=== PATIENT | male | born 1945 | race Caucasian/White ===

== ENCOUNTER → 2023-04-23 15:46 | Outpatient (REF) | payer MEDICARE, OTHER, SELFPAY | LOC: HWRAD 15:46 | PROVIDERS: ATTENDING PHYSICIAN Family Medicine | DX: R10.9 Unspecified abdominal pain (principal) | CPT/HCPCS: 74176 ==

== ENCOUNTER → 2023-08-24 20:15 | Outpatient (REF) | payer MEDICARE, OTHER, SELFPAY | LOC: MRI 3T 20:15 | PROVIDERS: ATTENDING PHYSICIAN Internal Medicine Endocrinology, Diabetes & Metabolism; FAMILY PHYSICIAN Family Medicine | DX: D35.2 Benign neoplasm of pituitary gland (principal) | CPT/HCPCS: 70553; A9575 ==

== ENCOUNTER → 2024-08-22 15:49 | Outpatient (REF) | payer MEDICARE, OTHER, SELFPAY | LOC: MRI 3T 15:49 | PROVIDERS: ATTENDING PHYSICIAN Internal Medicine Endocrinology, Diabetes & Metabolism; FAMILY PHYSICIAN Family Medicine | DX: D35.2 Benign neoplasm of pituitary gland (principal) | CPT/HCPCS: 70553; A9575 ==

== ENCOUNTER → 2024-11-15 14:45 | Outpatient (REF) | payer MEDICARE, OTHER, SELFPAY | LOC: HWRAD 14:45 | PROVIDERS: ATTENDING PHYSICIAN Family Medicine | DX: M17.0 Bilateral primary osteoarthritis of knee (principal) | CPT/HCPCS: 73564 ==

== ENCOUNTER → 2025-01-04 06:31 | Outpatient (REF) | payer MEDICARE, OTHER, SELFPAY | LOC: HWRAD 06:31 | PROVIDERS: ATTENDING PHYSICIAN Family Medicine | DX: Z13.820 Encounter for screening for osteoporosis (principal); M81.0 Age-related osteoporosis without current pathological fracture | CPT/HCPCS: 77080 ==

== ENCOUNTER 2025-02-05 17:16 | Emergency (ER) | payer MEDICARE, OTHER, SELFPAY ==
[2025-02-05 17:17] VITALS: BP 179/97; BMI 32.0
[2025-02-05 17:45] LABS: Hematocrit 38.8 % (39.0-52.0); Hemoglobin 13.8 g/dL (13.0-18.0); Mean Corp Hgb Conc. 35.6 g/dL (33.0-37.0); Mean Corpuscular Volume 93.7 fL (80.0-94.0); Nucleated Red Blood Cells % 0 % (-); Platelet Count 143 10^3/uL (130-400); Red Cell Dist. Width 11.9 % (11.5-14.5)
[2025-02-05 18:01] LABS: COVID-19 Antigen Negative (Negative)
[2025-02-05 18:14] LABS: ALT (SGPT) 39 U/L (0-50); AST (SGOT) 30 U/L (17-59); Albumin 4.3 g/dl (3.5-5.0); Alkaline Phosphatase 121 U/L (38-126); Blood Urea Nitrogen 20 mg/dl (9-20); Calcium 9.0 mg/dl (8.4-10.2); Carbon Dioxide 22 mmol/L (22-30); Chloride 107 mmol/L (98-107); Glucose 135 mg/dl (70-99); Potassium 4.0 mmol/L (3.5-5.1); Sodium 138 mmol/L (135-145); Total Protein 7.1 g/dl (6.3-8.2); eGFR 47.36
[2025-02-05 18:29] VITALS: BP 163/76
[2025-02-05 19:00] VITALS: BP 159/77
[2025-02-05 20:00] VITALS: BP 133/75
[2025-02-05] MEDS: DUONEB 3 ML INH (20:04)
[2025-02-05 21:00] VITALS: BP 132/75
--- NOTE | 2025-02-05 23:18 | ED.GENMED ---
History of Present Illness
General
Chief Complaint: Cough
Source: patient and spouse
Exam Limitations: none
Time Seen by Provider: 02/05/25 19:32
Nursing documentation reviewed up to this point in time: agreed with
History of Present Illness
History of Present Illness:
Note:
CHIEF COMPLAINT(S)
- Persistent cough and congestion
HISTORY OF PRESENT ILLNESS
The patient is a 79-year-old male who began experiencing nasal congestion and a persistent clear runny nose shortly after returning from [facility]. The symptoms developed without an accompanying fever. On Thursday, he noted the onset of a
cough, which progressively worsened through and Thursday. By Thursday night, the coughing was severe enough to disrupt his sleep. The patient contacted his primary care physician on Thursday, who prescribed cough medicine. The patient suspected
pneumonia but was reassured over the phone by his physician that it was most likely bronchitis. Earlier today, he experienced a coughing fit that led to a sensation of fluid blocking his airway. This episode prompted his presentation to the
emergency department, especially as the symptoms did not resolve with position changes or brief walking. He had undergone a chest X-ray which showed no signs of pneumonia, and his COVID-19 and influenza tests were negative.
PAST MEDICAL AND SURIGICAL HISTORY
According to the patient, he was informed by his doctor about diminished kidney function in the past.
EXTERNAL RECORDS REVIEWED
Previous records from 2011 indicated a creatinine level that was slightly elevated at 1.5, likely related to known renal insufficiency.
CHRONIC MEDICAL CONDITIONS SIGNIFICANTLY AFFECTING CARE
- Chronic kidney disease
SOCIAL DETERMINANTS AFFECTING HEALTH
The patient reported having received COVID-19, influenza, and pneumonia vaccinations recently, which indicates good adherence to recommended healthcare practices.
IMMUNIZATION HISTORY
- COVID-19 vaccination
- Influenza vaccination
- Pneumonia vaccination
MEDICATIONS
- SudaFed
- Cough medicine prescribed by primary care physician
REVIEW OF SYSTEMS
- Respiratory: Persistent cough, sensation of fluid in lungs, wheezing noted during examination.
- Musculoskeletal: General achiness, particularly in the knees.
PHYSICAL EXAM
General: Alert, no acute distress.
Skin: Warm, dry.
Head: Normocephalic, atraumatic.
Neck: Supple, trachea midline.
Eye Ears, nose, mouth and throat: Oral mucosa moist.
Cardiovascular: Normal peripheral perfusion, No edema.
Respiratory: Respirations are non-labored, but wheezing noted.
Gastrointestinal: Abdomen nondistended
Back: Normal range of motion, Normal alignment.
Musculoskeletal: Normal ROM, normal strength.
Neurological: Alert and oriented to person, place, time, and situation, No focal neurological deficit observed.
Psychiatric: Cooperative, appropriate mood & affect.
PLAN
- Administer a nebulizer breathing treatment to alleviate respiratory symptoms.
- Prescribe an inhaler if the breathing treatment is effective.
- Advise discontinuation of ibuprofen due to its potential negative effects on renal function; recommend acetaminophen for discomfort instead.
- Continue monitoring symptoms and consult primary care physician if symptoms persist beyond expected duration.
DIFFERENTIAL DIAGNOSIS
The Differential Diagnosis includes, in no particular order and is not limited to:
1. Acute Bronchitis
2. Chronic Obstructive Pulmonary Disease exacerbation
3. Viral Upper Respiratory Infection
4. Heart Failure Exacerbation
5. Gastroesophageal Reflux Disease
6. Asthma
7. Pulmonary Edema
8. Pulmonary Embolism
9. Interstitial Lung Disease
10. Medication-induced cough
Disposition:
SUMMARY OF ENCOUNTER
The patient, a 79-year-old male, presented to the emergency department with persistent cough and congestion, suspecting pneumonia. After a clinical assessment and reviewing the chest X-ray, the symptoms were consistent with bronchitis, and pneumonia
was ruled out. The patient experienced a significant coughing episode with the sensation of airway blockage earlier, prompting concern. COVID-19 and influenza tests were negative. The management in the emergency department included a nebulizer
treatment with albuterol to alleviate respiratory symptoms. The patient was reassured about the diagnosis of bronchitis, considering his oxygen saturation was stable.
DISPOSITION
Discharge
ASSESSMENT
The patient presents with symptoms indicative of bronchitis rather than pneumonia, confirmed by the absence of pneumonia on the chest X-ray and the negative viral panels.
EMERGENCY TREATMENTS ADMINISTERED
Albuterol nebulizer breathing treatment was administered to alleviate respiratory symptoms.
PLAN
- Prescribe an inhaler if the nebulizer treatment proves effective.
- Discontinue ibuprofen due to potential renal side effects; use acetaminophen for discomfort instead.
- Monitor symptoms and follow up with primary care physician if symptoms persist beyond expected duration.
INDEPENDENT REVIEW OF LABS AND INTERPRETATION OF TESTS
My independent interpretation of the chest X-ray shows no signs of pneumonia.
PATIENT EDUCATION AND COUNSELING
The patient was educated about their likely bronchitis diagnosis and reassured about the absence of pneumonia. The importance of following up with the primary care physician and adhering to prescribed treatment, including being cautious with
ibuprofen given his known renal insufficiency, was emphasized.
FOLLOW-UP INSTRUCTIONS
Please schedule a follow-up visit with your primary care physician to re-evaluate symptoms and adjust treatment if necessary.
MEDICATION RECONCILIATION
- Prescribed inhaler if needed based on symptom improvement with neb treatment.
- Advised discontinuation of ibuprofen; acetaminophen recommended for discomfort.
MEDICAL DECISION MAKING
1. Number and Complexity of Problems Addressed: Chronic conditions affecting care include chronic kidney disease. Differential Diagnosis includes acute bronchitis, chronic obstructive pulmonary disease exacerbation, viral upper respiratory
infection, heart failure exacerbation, gastroesophageal reflux disease, asthma, pulmonary edema, pulmonary embolism, interstitial lung disease, and medication-induced cough.
2. Data:
Category 1:
- My independent review of the patients chest X-ray indicated no signs of pneumonia.
3. Risk:
Prescription drug management was discussed, including continuing only medications that would not affect renal function adversely. Prescription medication for bronchitis symptoms was administered.
DIAGNOSIS
- Bronchitis (ICD-10: J20.9)
- Chronic kidney disease (ICD-10: N18.9)
Past History
Past History
ED Past Medical History: Other (Hyperlipidemia, kidney stones)
ED Past Surgical History: Other (Left )
Social History
Tobacco: Non-smoker
Alcohol: None
Drug: None
Personal:
Living: with family
Employment: Employed
Family History
Family History: Hypertension; Negative Early CAD
Phy Exam
Physical Exam
Physical Exam:
.
Course
Orders/Labs/Results
Orders:
Orders
02/05/25 17:19
Chest [CR Chest - 2 Views ] Urgent
Comment:
Reason For Exam: cough
02/05/25 17:34
CBC/With Diff [Complete Blood Count/With Diff] Urgent
CMP [Comprehensive Metabolic Panel] Urgent
COVID-19 Antigen Urgent
Source: Nasal Swab
Influenza A+B Rapid Molecular Urgent
MARTIN Source: Nasal Swab
Specimen Description:
02/05/25 19:47
Ipratropium/Albuterol Sulfate [Duoneb] 3 ml INH R NOW STA
Abnormal Lab Results
02/05/25
17:34
WBC 4.2 L 10^3/uL
(4.8-10.8)
RBC 4.14 L 10^6/uL
(4.70-6.10)
Hct 38.8 L %
(39.0-52.0)
MCH 33.3 H pg
(27.0-31.0)
Eosinophils % 9.1 H %
(0-6)
Creatinine 1.5 H mg/dL
(0.7-1.3)
Glucose 135 H mg/dl
(70-99)
02/05/25 17:34
02/05/25 17:34
Vital Signs
Initial and Last Documented VS:
Initial Vital Signs
Temp Pulse Resp BP Pulse Ox
97.4 F 87 24 179/97 97
02/05/25 17:17 02/05/25 17:17 02/05/25 17:17 02/05/25 17:17 02/05/25 17:17
Last Documented Vital Signs
Temp Pulse Resp BP Pulse Ox
99.2 F 70 18 132/75 96
02/05/25 18:30 02/05/25 23:57 02/05/25 23:57 02/05/25 21:00 02/05/25 23:19
*Pulse Oximetry
SaO2: 96
Oxygen Mode of Delivery: Room air
Patient hypoxic: no
*Critical Care Note
Total Time (30-74mins, 75-104mins- exclusive of procedures): Not Applicable
ED Attending Note
-
Portions of this chart may have been created with voice recognition software.� Occasional wrong word or��sound alike� substitutions may have occurred due to the inherent limitations of voice recognition software.
Discharge Plan
Departure
Patient Disposition: Home (Routine Discharge)
Date of Disposition: 02/05/25
Time of Disposition: 23:19
Patient with high blood pressure during this ER visit?: Yes
Condition: Good
Discharge Problem:
Acute bronchitis
Instructions: Acute Bronchitis, Adult (DC), BLOOD PRESSURE
Prescriptions:
New
albuterol sulfate 90 mcg/actuation aerosol powdr breath activated
2 inh inhalation Q4H PRN (Reason: shortness of breath or wheezing) Qty: 1 0RF
No Action
aspirin 81 MG tablet,delayed release (DR/EC)
81 mg PO DAILY
tamsulosin 0.4 MG capsule
0.4 mg PO DAILY
folic acid 1 MG tablet
1 mg PO DAILY
SAW PALMETTO
1 tab PO DAILY
VITAMIN E
200 unit PO DAILY
Zocor
20 mg PO QPM
ondansetron [Zofran ODT] 8 MG tablet,disintegrating
8 mg PO TIDPRN PRN (Reason: vomiting) Qty: 10 0RF
hydrocodone-acetaminophen [Vicodin] 1 EACH tablet
1 ea PO Q6HPRN PRN (Reason: pain) Qty: 10 0RF
Referrals:
Clint Duncan DO [Family Provider, Family Practice] - Call in 1-3 days for appt
Interventions
Interventions:
*General Assessment Last Done: 02/05/25 18:26
*Neglect/Abuse Screening Last Done: 02/05/25 18:26
*ED COVID-19 Vaccine History Last Done: 02/05/25 17:17
*ED Influenza Vaccine History Last Done: 02/05/25 17:17
[facility] Risk Assessment Tool Last Done: 02/05/25 17:17
*Risk Screen - Suicide (C-SSRS) Last Done: 02/05/25 17:17
*Nursing Disposition Last Done: 02/05/25 23:57
ED- Pulmonary Assessment Last Done: 02/05/25 18:26
Discharge Date and Time
Discharge Date/Time: 02/06/25 00:00
Print Language: WOLOF
== END 2025-02-06 | disposition home or self-care (01) ==
LOC: EMR 17:16
PROVIDERS: Emergency Medicine; EMERGENCY PHYSICIAN Emergency Medicine; FAMILY PHYSICIAN Family Medicine
DX: J20.9 Acute bronchitis, unspecified (principal); Z11.52 Encounter for screening for COVID-19
CPT/HCPCS: 94640; 99284; 71046; 80053; 85025; 87502; 87811